=== PATIENT | male | born 1955 ===

== ENCOUNTER 2025-01-08 07:06 | Outpatient (CLI) | payer OTHER | END 2025-01-08 07:15 | disposition home or self-care (01) | LOC: SONOGRAMA 07:06 | PROVIDERS: ATTEND Internal Medicine Gastroenterology | DX: R10.9 Unspecified abdominal pain (principal) ==

== ENCOUNTER 2025-01-20 08:01 | Outpatient (CLI) | payer OTHER | END 2025-01-20 08:15 | disposition home or self-care (01) | LOC: RAD 08:01 | PROVIDERS: ATTEND Urology | DX: M79.673 Pain in unspecified foot (principal) ==